=== PATIENT | female | born 1985 | race Caucasian/White ===

== ENCOUNTER 2016-08-15 05:47 | Day surgery (SDC) | payer OTHER ==
[2016-08-15] VITALS (13 sets, daily range): BP systolic 120–134; BP diastolic 72–84; PULSE 45–73; RESP 10–18; O2SAT 99–100
[~2016-08-15] VITALS: Ht 162.6 cm; Wt 85.3 kg
[~2016-08-15 05:47] MED LIST: MULT1CAP33 PO; SERXR300 PO
[2016-08-15] MEDS ORDERED: Glycopyrrolate 0.2 mg/mL 5 mL Inj ONE (05:48)
[2016-08-15] MEDS ORDERED: Neostigmine 1 mg/mL 5 mL Inj ONE (05:48)
[2016-08-15] MEDS ORDERED: Propofol 10,000 mCg/mL 20 mL Inj ONE (05:48)
[2016-08-15] MEDS ORDERED: Rocuronium 10 mg/mL 5 mL Inj ONE (05:48)
[2016-08-15] MEDS ORDERED: fentaNYL-PF 50 mCg/mL 2 mL Inj ONE (05:48)
[2016-08-15] MEDS ORDERED: Lidocaine PF 1% 30 mL Inj ONE (05:48)
[2016-08-15] MEDS ORDERED: Dexamethasone 4 mg/mL Inj ONE (05:48)
[2016-08-15] MEDS: Lactated Ringer's 1,000 ML IV SCH ×2 (05:57→08:00)
[2016-08-15 07:24] LABS: BASOPHILS % (AUTO) 0.6 % (0-3); MONOCYTES % (AUTO) 9.1 % (4-12); Mean Corpuscular Hemoglobin 29.3 pg (27.0-35.0); Mean Corpuscular Volume 88.4 fL (81-100); NEUTROPHILS % (AUTO) 57.5 % (40-74); Platelet Count 322 bil/L (150-400)
--- NOTE | 2016-08-15 07:24 | PCM.HPANE ---
Patient Data Date of Service: Aug 15, 2016 Surgeon Admitting Provider: Attending Provider:Gladys Vigil MD Primary Care Physician:La Barrientos Other Provider:Venkat Simpson Anesthesia Reason for Visit Desires Sterilization Ht/WT & BMI Height (Feet): 5 Height (Inches): 4.00 Weight (Kilograms): 85.300 Body Mass Index 32.00 Allergies Coded Allergies: Sulfa (Sulfonamide Antibiotics) (Verified Allergy, Severe, ANAPHALAXIS, ) nortriptyline (Verified Allergy, Intermediate, SUICICAL THOUGHTS, 08/12/16) sertraline (Verified Allergy, Intermediate, SEVERE AGITATION, 08/12/16) venlafaxine (Verified Allergy, Intermediate, RESTLESSNESS, 08/12/16) divalproex sodium (Verified Adverse Reaction, Unknown, 04/19/14) DOES NOT DO WELL escitalopram (Verified Adverse Reaction, Unknown, 04/19/14) DOES NOT DO WELL WITH THESE Diabetes History Hx Diabetes?: No Medications Home Meds Incl Beta Jessy: No Reported Medications Multivitamin (Multivitamins)1 Each Capsule1 Each PO DAILY 08/12/16 Quetiapine Fumarate ER (Seroquel XR)300 Mg [id number] Mg PO DAILY 08/12/16 History History of ENT Problems?: No Hx of Heart Problems?: No Cardiovascular History: Denies:: Congestive Heart Failure Hx of Respiratory Problem?: No Hx Neurologic Problems?: Yes Neurological History: Positive for:: Headaches Hx of GI Problems?: No Hx of Problems?: No Genitourinary History: Positive for:: Urinary Tract Infection Female Hx: Denies:: Currently Skin History: Denies:: History Skin Disorders? Pressure Ulcers Hx Musculoskeletal Problems?: No Hx Diabetes: No Smoking Status: Unknown if Ever Smoker Stop/Bang S-Snoring: Do You Snore Loudly: No T-Tired: feel tired, fatigued: Yes O-Obsered: Observed not breath: No P-Blood Pressure: treated: No B- Body Mass Index > 35 kg/m2: No A- Age over 50: No N- Neck Large Circumference: No G- Gender Male: No INDU Total Score: 1 INDU Risk Assessment: Low Risk, <3 Yes Risk Assessment Category Category 1A: Patient has history of documented sleep apnea, and HAS NOT received any narcotic, sedative or anesthesia administration during this stay. Category 1B: Patient has history of documented sleep apnea, and HAS received any narcotic , sedative or anesthesia administration during this stay Category 2: Patient has SUSPECTED Obstructive Sleep Apnea, and HAS received any narcotic , sedative or anesthesia administration during this stay. Category 3: Patient has SUSPECTED Obstructive Sleep Apnea and HAS NOT received narcotic, sedative or anesthesia administration during this stay. Category 4: Outpatient in Procedural Areas with known sleep apnea or who screen positive for High Risk via the STOP/BANG questionnaire. Exam Exam Vital Signs Vital Signs Date Time Temp Pulse Resp B/P Pulse Ox O2 Delivery O2 Flow Rate FiO2 08/15/16 06:41 36.1 73 12 124/83 100 Room Air 08/15/16 06:17 36.1 73 12 124/83 100 Room Air General Appearance: Alert, Oriented X3, Cooperative, No Acute Distress Lungs: Normal Air Movement Heart: Exam Unremarkable Meds/Labs/Diagnostics Admission Meds Current Medications Lactated Ringer's (Lr) 1,000 ml @ 120 mls/hr [id number] IV Last administered on t 05:57; Start 08/15/16 at 05:00; Stop 08/15/16 at 13:19 Plan Impression Patient chart reviewed, patient interviewed and anesthestic plan with risks, benefits, and alternatives discussed, and informed consent obtained. NPO Status: 10PM ASA Physical Status: ASA2 Mod Systemic Disease Anesthetic Plan: GA Bene/Risks/Altern/Consents: Yes HP Complete Prior to Induction: Yes Mark Layne MD Aug 15, 2016 07:07
[2016-08-15] MEDS ORDERED: Lactated Ringer's 1,000 ML IV SCH (07:36)
[2016-08-15] MEDS ORDERED: Lactated Ringer's 500 ML IV PRN (07:36)
[2016-08-15] MEDS ORDERED: Dexamethasone 4 mg/mL Inj IVPUSH PRN (07:40)
[2016-08-15] MEDS ORDERED: EPHEDrine Sulfate 50 mg/mL Inj IVPUSH PRN (07:40)
[2016-08-15] MEDS ORDERED: MetoCLOpramide 5 mg/mL 2 mL Inj IVPUSH PRN ×2 (07:40→08:50)
[2016-08-15] MEDS ORDERED: hydrALAZINE 20 mg/mL Inj IVPUSH PRN (07:40)
[2016-08-15] MEDS ORDERED: Ondansetron 2 mg/mL 2 mL Inj IVPUSH PRN ×2 (07:40→08:50)
[2016-08-15] MEDS ORDERED: Labetalol 5 mg/mL 4 mL Inj IV PRN (07:40)
[2016-08-15] MEDS ORDERED: Phenylephrine 10,000 mCg/mL Inj IVPUSH PRN (07:40)
[2016-08-15] MEDS ORDERED: Atropine 0.4 mg/mL Inj IVPUSH PRN (07:40)
[2016-08-15] MEDS ORDERED: HYDROmorphone 1 mg/mL Inj IVPUSH PRN (07:40)
[2016-08-15] MEDS ORDERED: Bupivacaine-MPF 0.5% W/EPI 30 mL Inj INFILTRATE ONE (08:00)
[2016-08-15] MEDS ORDERED: HYDROcodone-APAP 5-325 mg Tablet PO PRN (08:50)
--- NOTE | 2016-08-15 08:55 | PCM.DIGYN ---
Surgical Discharge Instruction Dates of Hospitalization Date of Hospital Admission Providers Admitting Physician: Primary Care Physician: La Barrientos Attending Physician: Gladys Vigil MD Diagnosis at Time of Discharge Diagnosis at time of discharge s/p laparoscopy tubal ligation Post-operative diagnosis s/p laparoscopy tubal ligation Problems: Diet Discharge Diet: No restrictions Activity Discharge Activity-General: Try not to overdue, Balance rest and activity Dressing and Incisional Care Hygiene: May shower, DO NOT soak incision under water Additional Instructions Discharge Instructions Please call office if heavy vaginal bleeding, severe abdominal pain, foul smelling discharge, fever more than 100.4 or short of breath Follow Up Plan Follow Up Plan follow up in office 2 weeks after procedure Follow-up Provider (F9): Gladys Vigil MD Follow-up appointment: Weeks (2) Gladys Vigil MD Aug 15, 2016 08:55
[2016-08-15] MEDS: fentaNYL-PF 50 mCg/mL 2 mL Inj IVPUSH PRN ×3 (08:56→09:27)
--- NOTE | 2016-08-15 08:56 | PCM.ANEP1 ---
Post Anesthesia Phase 1 PACU Phase 1 Assessment Date of Service: Aug 15, 2016 Vital Signs Vital Signs Date Time Temp Pulse Resp B/P Pulse Ox O2 Delivery O2 Flow Rate FiO2 08/15/16 06:41 36.1 73 12 124/83 100 Room Air 08/15/16 06:17 36.1 73 12 124/83 100 Room Air Anesthetic Administered: GA Level of Alertness: Awake, talking UPTON's with Equal Strength: Yes Pain: No Nausea or Vomiting: No Oxygen Delivery: Simple Mask Lungs: Normal Air Movement Mark Layne MD Aug 15, 2016 08:56
--- NOTE | 2016-08-15 09:17 | DIS ---
[address] [address] DISCHARGE SUMMARY PATIENT: WALE MONTENEGRO : 1985 MR#: [id number] ADMIT: 08/15/2016 JOB ID: [id number] DIS: 08/15/2016 This is a 31-year-old female. She came in today for a laparoscopy bilateral tubal ligation and IUD removal. The procedure was not complicated. The patient tolerated the procedure well. PLAN: Is sending her home after procedure when her pain is well controlled and she could void and ambulate. The patient is instructed that if she has heavy vaginal bleeding, severe abdominal pain, foul-smelling discharge, fever more than 100.4, she will need to call office or go to the ED for evaluation. She is also instructed to go back to office for followup two weeks after the procedure. Motrin 600 mg 30 pills prescribed. She can take every 6 hours p.r.n. for pain. Vicodin 10 pills prescribed for severe pain.
--- NOTE | 2016-08-15 09:19 | PCM.ANEP2 ---
Post Anesthesia Evaluation ASA/CMS Post Anesthesia Date of Service: Aug 15, 2016 VS in Patient's Normal Range?: Yes Resp Stable; Airway Patent?: Yes CV Function & Hydration Stable: Yes Mental Status Recovered?: Yes Pain control Satisfactory?: Yes N/V Control Satisfactory?: Yes Mark Layne MD Aug 15, 2016 09:19
--- NOTE | 2016-08-15 09:33 | OP ---
[address] [address] OPERATIVE REPORT PATIENT: WALE MONTENEGRO : 1985 MR#: [id number] ADMIT: 08/15/2016 JOB ID: [id number] DATE OF SURGERY: 08/15/2016 SURGEON: Gladys Vigil MD SURGERY: Laparoscopy bilateral tubal ligation with Filshie clips. Intrauterine device removal. INDICATION FOR THE PROCEDURE: A 31-year-old female strongly desire for permanent sterilization. PREOPERATIVE DIAGNOSIS(ES): A 31-year-old female never been . Strongly desires for permanent sterilization. POSTOPERATIVE DIAGNOSIS(ES): Same as above. This 31-year-old female never been and she is very strongly desiring for permanent sterilization and she never wants to be and she has been using long reversible controls. She currently has a paraguard intrauterine device in situ, but the patient desires for permanent sterilization. With several visit in office and still prefers this procedure to be done. Discussed with patient about the benefits, risks, alternatives of the procedure. She understood that this is a permanent procedure and cannot be redone. On the other hand, she understood that not any control is 100% guaranteed including the bilateral tubal ligation. She understood the risk of injury to the organs around the tubes, uterus including but not limited to the bladder, ureters, major vessels, nerves, and bowels. She understood there is a risk of heavy bleeding which may need a blood transfusion. She also understood the general risk of laparoscopy. Informed consent signed. PROCEDURE IN DETAIL: The patient was transferred to operating room. After general anesthesia was noted to be adequate, she was placed in dorsal lithotomy position. She was prepared and draped in a normal sterile fashion. At this time speculum inserted to vagina to expose the cervix. The cervix was grasped by a single-tooth tenaculum. The IUD string was noted and removed without difficulty. At this time, the [place] manipulator was placed for uterine manipulating and the speculum removed. At this time, the attention was transferred to her abdomen. The Veress needle was inserted from her umbilicus. After confirmed proper placement, CO2 gas inserted for pneumoperitoneum. The maximum pressure was limited at 15. At this time, the Veress needle removed. Local anesthesia was given. An 11 mm incision was placed at her umbilicus. Then, the 11 mm scope was inserted with direct visualization and then the pelvis was evaluated with no abnormal finding. Both ovaries and both tubes and uterus has no abnormality. At this time, the Filshie clip was placed on the instrument and was placed on the right tube. After the first clip was placed with examination I believe there is only half of the fallopian tube was clamped. Then the second clip was placed on the same side of the tube and confirmed that the whole fallopian tube was clamped. This position is at the proximal one third of the fallopian tube. Same procedure was done on the left fallopian tube with one Filshie clip placed and confirmed the whole fallopian tube was clamped. After the procedure, the uterus, the tubes and ovaries, were re-examined. There was no noticed bleeding. At this time, all instruments were removed from her abdomen. 0-Vicryl used to close the fascia of the incisions. 4-0 Monocryl was used to close the skin subcutaneously. Dermabond was placed on top. The patient tolerated the procedure well. All instrument, needles, laps and gauzes counted correct twice. The EBL during procedure was minimal. She had 0.5 cc of urine straight cathed before the procedure. The fluid she got was 90 cc during the procedure. The patient was transferred to recovery room in a stable condition. DOROTHY
== END 2016-08-15 23:59 | disposition home or self-care (01) ==
LOC: SAS 05:47
PROVIDERS: ATTEND Obstetrics & Gynecology
DX: Z30.2 Encounter for sterilization (principal); Z30.432 Encounter for removal of intrauterine contraceptive device; N76.0 Acute vaginitis
CPT/HCPCS: 36415; 58301; 58671; 85025; J1100; J1170; J2250; J2405; J2710; J3010; J7120